=== PATIENT | female | born 1980 | race African-American/Black ===

== ENCOUNTER 2017-04-05 02:01 | Emergency (ER) | payer BC ==
[~2017-04-05] VITALS: Ht 170.2 cm; Wt 65.8 kg
[~2017-04-05 02:01] MED LIST: AZO95 MG; BACTRIM DS TAB1 EACH PO; BENTYL20 MG PO; CELEXA20 MG PO; CHLORDIAZEPOXID10 MG PO; CYCLOBENZAPRINE5 MG PO; FOLIC ACID1 MG PO; IBUPROFEN 600600 M1 PO; LEVOTHYROXIN0.025 MG PO; LO LOESTRIN FE1 EACH; LOESTRIN FE 1-1 EACH; MAG DELAY64 MG PO; MINASTRIN 24 F1 EACH PO; NEXIUM40 MG PO; NOHOMEMEDICATIONS; NORCO 5-325 TA1 EACH PO; OTHER PO; PERCOCET PO; POTASSIUM20 PO; SENNA8.6 MG PO; THIAMINE HCL25 GM PO; VITAMIN B-1100 M1 PO; VITAMIN B-1100 M2 PO; VITAMIN B-12500 MCG; ZYRTEC10 M5; ZYRTEC10 MG PO
[2017-04-05] MEDS ORDERED: PEPCID20 MG (02:16)
[2017-04-05 02:39] LABS: HEMATOCRIT 33.3 % (37.0-47.0); HEMOGLOBIN 10.8 gm/dL (12.0-15.0); MCHC 32.4 g/dL (28.0-37.0); MCV 77.1 fL (80.0-100.0); PLATELET COUNT 301 thou/uL (150-400); RBC 4.32 mil/uL (4.20-5.00)
[2017-04-05 02:40] LABS: MANUAL DIFF YES
[2017-04-05 02:48] LABS: CALCIUM 9.1 mg/dL (8.5-10.1); CREATININE 0.8 mg/dL (0.6-1.0); POTASSIUM 3.1 mmol/L (3.5-5.1)
[2017-04-05 02:54] LABS: ALBUMIN 3.4 g/dL (3.4-5.0); DIRECT BILIRUBIN 0.1 mg/dL (<0.1-0.3); TOTAL BILIRUBIN 0.4 mg/dL (<0.1-1.0); TOTAL PROTEIN 7.5 g/dL (6.4-8.2)
[2017-04-05 03:08] LABS: ABSOLUTE NEUTROPHILS 1.7 thou/uL (1.4-8.2); LARGE PLATELETS OCCASIONAL; TOTAL CELL COUNT 100
[2017-04-05] MEDS ORDERED: POTASSIUM20 PO (03:33)
[2017-04-05] MEDS ORDERED: SLOW-MAG64 M1 PO (03:33)
== END 2017-04-05 04:07 | disposition home or self-care (01) ==
LOC: ER 02:01
PROVIDERS: Emergency Medicine
DX: D72.819 Decreased white blood cell count, unspecified (principal); F10.220 Alcohol dependence with intoxication, uncomplicated; D64.9 Anemia, unspecified; E87.6 Hypokalemia; K85.90 Acute pancreatitis without necrosis or infection, unspecified; J45.909 Unspecified asthma, uncomplicated; E03.9 Hypothyroidism, unspecified; F32.9 Major depressive disorder, single episode, unspecified; F41.9 Anxiety disorder, unspecified; K21.9 Gastro-esophageal reflux disease without esophagitis; Z98.890 Other specified postprocedural states; Z88.1 Allergy status to other antibiotic agents; Z88.8 Allergy status to other drugs, medicaments and biological substances; Z87.891 Personal history of nicotine dependence

== ENCOUNTER 2017-07-27 23:18 | Emergency (ER) | payer BC ==
[~2017-07-27] VITALS: Ht 177.8 cm; Wt 63.5 kg
[~2017-07-27 23:18] MED LIST changes: +PEPCID20 MG; +SLOW-MAG64 M1 PO
[2017-07-27] MEDS ORDERED: VITAMIN B1 (23:30)
[2017-07-27] MEDS ORDERED: ZYRTEC10 M5 PO (23:39)
[2017-07-27] MEDS ORDERED: NAPROSYN500 MG PO (23:41)
[2017-07-27] MEDS ORDERED: NEURONTIN600 MG PO (23:48)
[2017-07-28] MEDS ORDERED: NAPROSYN500 MG PO (00:21)
== END 2017-07-28 00:34 | disposition home or self-care (01) ==
LOC: ER 23:18
DX: G56.03 Carpal tunnel syndrome, bilateral upper limbs (principal); G89.29 Other chronic pain; M25.552 Pain in left hip; M54.5 Low back pain; J45.909 Unspecified asthma, uncomplicated; E03.9 Hypothyroidism, unspecified; F32.9 Major depressive disorder, single episode, unspecified; F41.9 Anxiety disorder, unspecified; K21.9 Gastro-esophageal reflux disease without esophagitis; F10.99 Alcohol use, unspecified with unspecified alcohol-induced disorder; Z86.2 Personal history of diseases of the blood and blood-forming organs and certain disorders involving the immune mechanism; Z88.1 Allergy status to other antibiotic agents; Z87.891 Personal history of nicotine dependence

== ENCOUNTER 2017-08-27 02:54 | Inpatient (IN) | payer BC ==
[~2017-08-27] VITALS: Ht 177.8 cm; Wt 64.4 kg
--- NOTE | ~2017-08-27 | HC ---
[facility] [place] [address] CONSULTATION Name: KIEL SAAVEDRA Room #: 432-[facility] IN M.R.#: [id number] Admission: 08/27/17 Attend Phys: Salinas Camejo MD Discharge: Date of : 84 Report #: [id number] THIS REPORT FOR: //name// CC: Salinas Melton MD DATE OF SERVICE: 08/28/2017 ATTENDING PHYSICIAN: Salinas Camejo MD. REQUESTING PHYSICIAN: Dr. Ashford. REASON FOR CONSULTATION: Fever, leukopenia. HISTORY OF PRESENT ILLNESS: The patient is a 36-year-old -Citizen [place] woman, readmitted with abdominal pain and diagnosed to have alcohol induced pancreatitis. The patient is known to have used significant amounts of alcohol in the past. She has previous cholecystectomy for possible gallstone pancreatitis, but obviously she is having recurrent pancreatitis due to alcohol abuse. SOCIAL HISTORY: Single. Living with father and mother. Alcohol use heavily. DRUG ALLERGIES: AMOXICILLIN, PENICILLIN. MEDICATIONS: She is on magnesium and potassium supplementation per protocol, pantoprazole, oxycodone immediate release, morphine sulfate p.r.n., metronidazole 500 mg IV every 8 hours, ciprofloxacin 400 mg IV every 12 hours, p.r.n. zolpidem 5 mg at bedtime, polyethylene glycol 17 g daily, nitroglycerin SL p.r.n., lorazepam 1 mg q. 4h. p.r.n. IV, ondansetron 4 mg q. 4h. p.r.n. IV. She has received some famotidine for reflux esophagitis. REVIEW OF SYSTEMS: Abdominal pain. Diarrheal process that had been ongoing for a while, but has ceased since admission. Nausea and vomiting. Stomach becomes upset with solid meals. PHYSICAL EXAMINATION: GENERAL: This is a well-developed, not toxic looking -[place]izen [place] woman. VITAL SIGNS: Temperature of 100.5, pulse 82, respirations 18, BP 152/107, O2 saturation 100% on room air. HEENMT: Head normocephalic, atraumatic. Pupils reactive. Mouth: Good oral hygiene dentition. NECK: Supple. No thyromegaly or lymphadenopathy. BREASTS: Deferred. LYMPH NODE: Negative. [address] [address] CONSULTATION Name: KIEL SAAVEDRA Room #: [facility] IN [facility].#: [id number] Admission: 08/27/17 Attend Phys: Salinas Camejo MD Discharge: Date of : 84 Report #: [id number] LUNGS: Clear. HEART: S1, S2. No gallop or murmur. ABDOMEN: Epigastric tenderness. Surgical scar in the periumbilical area. No palpable masses or megaly. PELVIC AND RECTAL: Deferred. EXTREMITIES: No clubbing or cyanosis. NEUROLOGIC: Grossly within normal limits. LABORATORY DATA: Sodium 137, potassium 3.1, BUN 2, creatinine 0.8, lipase 3603. SGOT 175, alkaline phosphatase 189, albumin 3.1 g/dL. WBC 2100, hemoglobin 10.6 g/dL, platelets 156,000. White blood cell count differential revealed 67% neutrophils. Note is made that patient had been leukopenic since 02/2013. This possibly is related to a congenital type racially related leukopenic phenomenon. The test is negative. TSH mildly elevated at 7.6. Ferritin 650, folate 7.6 and B12 412. HIV antibodies pending. Urinalysis revealed trace proteinuria, otherwise negative. RADIOLOGY EVALUATION: A CT scan of abdomen and pelvis revealed absent gallbladder, inflammatory changes around the pancreas compatible with acute pancreatitis. Some pelvic fluid is present. Hemangiomas in the live are noticed. ASSESSMENT: 1. Acute alcoholic pancreatitis. 2. Fever, possibly secondary to above. 3. Electrolyte imbalance. 4. 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 5. Status post cholecystectomy. SUGGESTIONS: I agree with Dr. Ashford the patient needs HIV serology, though I believe her leukopenia may not be related to HIV infection. Continue coverage with Cipro and Flagyl. Decrease dose of Flagyl to 500 mg IV every 12 hours. Doubt very much we are dealing with C. difficile colitis. If clinically continues to looks this well, may discontinue antibiotics surely. Dr. Camejo and Dr. Ashford, thank you for requesting my suggestions in the care of your patient. <ELECTRONICALLY SIGNED> By: James aMhoney MD 08/29/17 0921 1336 0044 James Mahoney MD /nt
[~2017-08-27 02:54] MED LIST changes: +NAPROSYN500 MG PO; +NEURONTIN600 MG PO; +VITAMIN B1; +ZYRTEC10 M5 PO
[2017-08-27 03:02] VITALS: BP 171/117
[2017-08-27] MEDS ORDERED: METHYLPREDNISOLO4 MG PO (03:12)
[2017-08-27] MEDS ORDERED: INDOMETHACIN 5050 M1 (03:12)
[2017-08-27 03:57] LABS: URINE BILIRUBIN NEGATIVE (Negative); URINE BLOOD NEGATIVE (Negative); URINE COLOR YELLOW; URINE GLUCOSE-RANDOM* NEGATIVE (Negative); URINE KETONES NEGATIVE (Negative); URINE LEUKOCYTES-REFLEX NEGATIVE (Negative); URINE UROBILINOGEN 0.2 E.U./dl (0.2-1.0)
[2017-08-27 04:02] LABS: HEMATOCRIT 35.4 % (37.0-47.0); HEMOGLOBIN 11.1 gm/dL (12.0-15.0); MCHC 31.2 g/dL (28.0-37.0); MCV 83.1 fL (80.0-100.0); PLATELET COUNT 195 thou/uL (150-400); RBC 4.26 mil/uL (4.20-5.00); RDW 14.5 % (10.5-14.5); WBC 2.5 thou/uL (4.0-11.0)
[2017-08-27 04:03] LABS: MANUAL DIFF YES
[2017-08-27 04:07] LABS: CALCIUM 9.3 mg/dL (8.5-10.1); CREATININE 0.6 mg/dL (0.6-1.0); POTASSIUM 3.1 mmol/L (3.5-5.1)
[2017-08-27 04:13] LABS: ALBUMIN 3.5 g/dL (3.4-5.0)
[2017-08-27 04:27] LABS: SSA (PROTEIN CONFIRMATORY) TRACE (APPROX. 5) mg/dL (Negative); URINE PROTEIN (DIPSTICK) TRACE (Negative)
[2017-08-27 05:39] LABS: ABSOLUTE NEUTROPHILS 1.9 thou/uL (1.4-8.2); ANISOCYTOSIS SLIGHT; TOTAL CELL COUNT 100
[2017-08-27 15:29] VITALS: BP 156/109
[2017-08-27 19:13] LABS: % SATURATION 39 % (20-39); IRON 116 ug/dL (50-170); TIBC 301 ug/dL (250-450); UIBC 185 ug/dL
[2017-08-27 19:36] LABS: FOLIC ACID 7.6 ng/mL (8.6-58.9); TSH 7.64 uIU/mL (0.358-3.740)
[2017-08-27 20:00] VITALS: BP 162/103
[2017-08-28 01:01] VITALS: BP 161/112
[2017-08-28 05:45] VITALS: BP 152/107
[2017-08-28 06:25] LABS: HEMATOCRIT 34.6 % (37.0-47.0); HEMOGLOBIN 10.6 gm/dL (12.0-15.0); MCH 25.8 pg (26.0-34.0); MCHC 30.6 g/dL (28.0-37.0); MCV 84.4 fL (80.0-100.0); PLATELET COUNT 156 thou/uL (150-400); RDW 14.9 % (10.5-14.5); WBC 2.1 thou/uL (4.0-11.0)
[2017-08-28 06:30] LABS: MANUAL DIFF YES
[2017-08-28 06:44] LABS: ALBUMIN 3.1 g/dL (3.4-5.0); CALCIUM 7.8 mg/dL (8.5-10.1); CREATININE 0.8 mg/dL (0.6-1.0); POTASSIUM 3.1 mmol/L (3.5-5.1); TOTAL BILIRUBIN 1.4 mg/dL (<0.1-1.0); TOTAL PROTEIN 6.3 g/dL (6.4-8.2)
[2017-08-28 06:52] LABS: MAGNESIUM 0.9 mg/dL (1.8-2.4)
[2017-08-28 08:40] VITALS: BP 149/100
[2017-08-28 09:07] LABS: ABSOLUTE NEUTROPHILS 1.4 thou/uL (1.4-8.2); ATYPICAL LYMPHS 1 %; NUCLEATED RBCS 1 /100WBC; TOTAL CELL COUNT 100
[2017-08-28 09:09] LABS: ANISOCYTOSIS 2+; MACROCYTES 1+; MICROCYTES 1+
[2017-08-28 09:10] LABS: POLYCHROMASIA OCCASIONAL
[2017-08-28 17:12] LABS: HIV ANTIBODY Non Reactive (Non Reactive)
[2017-08-28 19:45] VITALS: BP 161/115
[2017-08-28 23:24] VITALS: BP 143/92
[2017-08-29 03:15] VITALS: BP 148/103
[2017-08-29 06:20] LABS: HEMATOCRIT 32.8 % (37.0-47.0); HEMOGLOBIN 10.3 gm/dL (12.0-15.0); MCH 26.3 pg (26.0-34.0); MCHC 31.3 g/dL (28.0-37.0); MCV 84.1 fL (80.0-100.0); PLATELET COUNT 137 thou/uL (150-400); RDW 15.5 % (10.5-14.5)
[2017-08-29 06:24] LABS: MANUAL DIFF YES
[2017-08-29 06:25] LABS: WBC 1.8 thou/uL (4.0-11.0)
[2017-08-29 06:39] LABS: ALBUMIN 2.8 g/dL (3.4-5.0); CALCIUM 8.3 mg/dL (8.5-10.1); CREATININE 0.7 mg/dL (0.6-1.0); MAGNESIUM 1.8 mg/dL (1.8-2.4); TOTAL BILIRUBIN 0.9 mg/dL (<0.1-1.0); TOTAL PROTEIN 5.9 g/dL (6.4-8.2)
[2017-08-29 08:14] VITALS: BP 141/100
[2017-08-29 08:45] LABS: ABSOLUTE NEUTROPHILS 1.1 thou/uL (1.4-8.2); PLATELET ESTIMATE NORMAL; TOTAL CELL COUNT 100
[2017-08-29 15:35] VITALS: BP 151/93
[2017-08-29 19:00] VITALS: BP 142/93
[2017-08-30 06:27] LABS: HEMATOCRIT 30.5 % (37.0-47.0); HEMOGLOBIN 9.5 gm/dL (12.0-15.0); MCH 26.3 pg (26.0-34.0); MCHC 31.3 g/dL (28.0-37.0); MCV 84.1 fL (80.0-100.0); PLATELET COUNT 147 thou/uL (150-400); RBC 3.62 mil/uL (4.20-5.00); RDW 15.3 % (10.5-14.5)
[2017-08-30 06:29] LABS: MANUAL DIFF YES
[2017-08-30 06:30] LABS: WBC 1.7 thou/uL (4.0-11.0)
[2017-08-30 08:03] VITALS: BP 139/92
[2017-08-30 08:19] LABS: CALCIUM 8.6 mg/dL (8.5-10.1); CREATININE 0.8 mg/dL (0.6-1.0); POTASSIUM 3.4 mmol/L (3.5-5.1)
[2017-08-30 09:40] LABS: TOTAL CELL COUNT 50
[2017-08-30 09:41] LABS: ANISOCYTOSIS 2+; MACROCYTES 1+; MICROCYTES 1+
[2017-08-30 09:49] LABS: LARGE PLATELETS OCCASIONAL
[2017-08-30 16:34] VITALS: BP 149/107
[2017-08-30 19:30] VITALS: BP 173/119
[2017-08-30 20:15] VITALS: BP 158/101
[2017-08-31 04:30] VITALS: BP 145/97
[2017-08-31 07:50] VITALS: BP 151/98
[2017-08-31 15:45] VITALS: BP 159/109
[2017-08-31 19:40] VITALS: BP 150/102
[2017-09-01 03:32] VITALS: BP 146/82
[2017-09-01 04:26] LABS: ABSOLUTE NEUTROPHILS 2.8 thou/uL (1.4-8.2); BASOPHILS 0.6 % (0.0-2.0); EOSINOPHILS 0.4 % (0.0-3.0); HEMATOCRIT 31.1 % (37.0-47.0); HEMOGLOBIN 9.9 gm/dL (12.0-15.0); LYMPHOCYTES 12.9 % (24.0-44.0); MCH 26.3 pg (26.0-34.0); MCHC 31.7 g/dL (28.0-37.0); MCV 82.9 fL (80.0-100.0); MONOCYTES 8.8 % (1.0-8.0); PLATELET COUNT 152 thou/uL (150-400); POLYS 77.3 % (36.0-66.0); RBC 3.75 mil/uL (4.20-5.00); RDW 14.9 % (10.5-14.5); WBC 3.6 thou/uL (4.0-11.0)
[2017-09-01 04:39] LABS: MANUAL DIFF NO
[2017-09-01] MEDS ORDERED: FLAGYL500 MG PO (08:51)
[2017-09-01] MEDS ORDERED: PROTONIX40 M1 PO (08:51)
[2017-09-01 09:27] VITALS: BP 144/105
[2017-09-01 12:52] VITALS: BP 144/105
== END 2017-09-01 15:19 | disposition home or self-care (01) | DRG 440 ==
LOC: ER 02:54 → 4E 06:05 → EROBS 06:05 → 4E 07:58
PROVIDERS: Emergency Medicine; Hospitalist; Internal Medicine Gastroenterology; Nurse Practitioner; Nurse Practitioner Acute Care
DX: K85.20 Alcohol induced acute pancreatitis without necrosis or infection (principal); E03.9 Hypothyroidism, unspecified; F32.9 Major depressive disorder, single episode, unspecified; J45.909 Unspecified asthma, uncomplicated; F41.9 Anxiety disorder, unspecified; D72.819 Decreased white blood cell count, unspecified; E87.6 Hypokalemia; K21.9 Gastro-esophageal reflux disease without esophagitis; E83.42 Hypomagnesemia; Z79.899 Other long term (current) drug therapy; Z87.891 Personal history of nicotine dependence; Z88.8 Allergy status to other drugs, medicaments and biological substances; Z88.1 Allergy status to other antibiotic agents; Z88.0 Allergy status to penicillin; Z90.49 Acquired absence of other specified parts of digestive tract
CPT/HCPCS: 10084

== ENCOUNTER 2018-09-25 19:05 | Emergency (ER) | payer OTHER ==
[~2018-09-25] VITALS: Ht 170.2 cm; Wt 61.7 kg
[~2018-09-25 19:05] MED LIST changes: +FLAGYL500 MG PO; +INDOMETHACIN 5050 M1; +METHYLPREDNISOLO4 MG PO; +PROTONIX40 M1 PO
[2018-09-25] MEDS ORDERED: TRAZODONE HCL50 MG PO (19:22)
[2018-09-25] MEDS ORDERED: NORCO 5-325 TA1 EACH PO (19:33)
[2018-09-25] MEDS ORDERED: BACTRIM DS TAB1 EACH PO (19:33)
[2018-09-25 19:41] VITALS: BP 163/103
== END 2018-09-25 19:42 | disposition home or self-care (01) ==
LOC: ER 19:05
DX: L02.215 Cutaneous abscess of perineum (principal); J45.909 Unspecified asthma, uncomplicated; E03.9 Hypothyroidism, unspecified; F32.9 Major depressive disorder, single episode, unspecified; F41.9 Anxiety disorder, unspecified; Z90.49 Acquired absence of other specified parts of digestive tract

== ENCOUNTER 2018-09-28 17:55 | Emergency (ER) | payer OTHER ==
[~2018-09-28] VITALS: Ht 170.2 cm; Wt 59.0 kg
[~2018-09-28 17:55] MED LIST changes: +TRAZODONE HCL50 MG PO
[2018-09-28 20:31] VITALS: BP 125/72
== END 2018-09-28 20:32 | disposition home or self-care (01) ==
LOC: ER 17:55
DX: L02.215 Cutaneous abscess of perineum (principal); J45.909 Unspecified asthma, uncomplicated; K21.9 Gastro-esophageal reflux disease without esophagitis; E03.9 Hypothyroidism, unspecified; Z90.49 Acquired absence of other specified parts of digestive tract

== ENCOUNTER 2019-02-22 17:11 | Emergency (ER) | payer OTHER ==
[~2019-02-22] VITALS: Ht 170.2 cm; Wt 61.7 kg
[2019-02-22] MEDS ORDERED: POTASSIUM20 PO (17:32)
[2019-02-22] MEDS ORDERED: INDAPAMIDE2.5 MG PO (17:34)
[2019-02-22] MEDS ORDERED: VENTOLIN HFA 1818 GM INH (17:35)
[2019-02-22] MEDS ORDERED: PHENERGAN 25 MG25 M1 PO (17:36)
[2019-02-22 17:59] LABS: HEMATOCRIT 34.7 % (37.0-47.0); HEMOGLOBIN 10.9 gm/dL (12.0-15.0); MCH 26.3 pg (26.0-34.0); MCHC 31.4 g/dL (28.0-37.0); MCV 83.8 fL (80.0-100.0); PLATELET COUNT 256 thou/uL (150-400); RBC 4.15 mil/uL (4.20-5.00); RDW 17.2 % (10.5-14.5); WBC 2.3 thou/uL (4.0-11.0)
[2019-02-22 18:07] LABS: CALCIUM 9.3 mg/dL (8.5-10.1); CREATININE 1.3 mg/dL (0.6-1.0)
[2019-02-22 18:10] LABS: POTASSIUM 2.5 mmol/L (3.5-5.1)
[2019-02-22 18:21] LABS: ABSOLUTE NEUTROPHILS 1.3 thou/uL (1.4-8.2); ANISOCYTOSIS 1+
[2019-02-22 21:12] LABS: CALCIUM 9.2 mg/dL (8.5-10.1); CREATININE 1.2 mg/dL (0.6-1.0)
[2019-02-22 21:13] LABS: POTASSIUM 3.9 mmol/L (3.5-5.1)
[2019-02-22 22:31] VITALS: BP 114/70
== END 2019-02-22 22:32 | disposition home or self-care (01) ==
LOC: ER 17:11
PROVIDERS: Physician Assistant
DX: E87.6 Hypokalemia (principal); R25.2 Cramp and spasm; F17.210 Nicotine dependence, cigarettes, uncomplicated; J45.909 Unspecified asthma, uncomplicated; E03.9 Hypothyroidism, unspecified; F32.9 Major depressive disorder, single episode, unspecified; F41.9 Anxiety disorder, unspecified; K21.9 Gastro-esophageal reflux disease without esophagitis; Z90.49 Acquired absence of other specified parts of digestive tract; Z90.89 Acquired absence of other organs; Z86.2 Personal history of diseases of the blood and blood-forming organs and certain disorders involving the immune mechanism; Z88.8 Allergy status to other drugs, medicaments and biological substances; Z88.1 Allergy status to other antibiotic agents

== ENCOUNTER 2019-03-09 09:46 | Emergency (ER) | payer OTHER ==
[~2019-03-09] VITALS: Ht 170.2 cm; Wt 61.2 kg
[~2019-03-09 09:46] MED LIST changes: +INDAPAMIDE2.5 MG PO; +PHENERGAN 25 MG25 M1 PO; +VENTOLIN HFA 1818 GM INH
[2019-03-09 10:38] LABS: URINE BILIRUBIN NEGATIVE (Negative); URINE BLOOD NEGATIVE (Negative); URINE CLARITY CLEAR; URINE COLOR YELLOW; URINE GLUCOSE-RANDOM* NEGATIVE (Negative); URINE KETONES NEGATIVE (Negative); URINE LEUKOCYTES-REFLEX NEGATIVE (Negative); URINE NITRITE-REFLEX NEGATIVE (Negative); URINE PROTEIN (DIPSTICK) 1+ (Negative); URINE SPECIFIC GRAVITY 1.015 (1.005-1.035)
[2019-03-09 10:50] LABS: BACTERIA-REFLEX 1-9 Few /HPF (None Seen); CASTS None Seen /LPF (None Seen); CRYSTALS None Seen /LPF (None Seen); MUCUS 0-3 Light strn/LPF (None Seen); SQUAMOUS 0-3 Few /LPF (0-3); URINE RBC 0-2 Rare /HPF (0-2); URINE WBC-REFLEX 0-5 Rare /HPF (0-5)
[2019-03-09 10:53] LABS: MCH 26.5 pg (26.0-34.0)
[2019-03-09 10:55] LABS: HEMATOCRIT 35.2 % (37.0-47.0); HEMOGLOBIN 11.3 gm/dL (12.0-15.0); MCHC 31.9 g/dL (28.0-37.0); MCV 83.1 fL (80.0-100.0); PLATELET COUNT 272 thou/uL (150-400); RBC 4.24 mil/uL (4.20-5.00); RDW 16.6 % (10.5-14.5)
[2019-03-09 10:58] LABS: WBC 1.7 thou/uL (4.0-11.0)
[2019-03-09 11:06] LABS: CALCIUM 8.8 mg/dL (8.5-10.1); POTASSIUM 3.2 mmol/L (3.5-5.1)
[2019-03-09 11:12] LABS: ALBUMIN 3.4 g/dL (3.4-5.0); TOTAL BILIRUBIN 0.8 mg/dL (<0.1-1.0); TOTAL PROTEIN 7.2 g/dL (6.4-8.2)
[2019-03-09 11:37] VITALS: BP 141/94
[2019-03-09] MEDS ORDERED: NAPROSYN500 MG PO (11:43)
[2019-03-09 12:01] LABS: ABSOLUTE NEUTROPHILS 0.9 thou/uL (1.4-8.2); PLATELET ESTIMATE NORMAL
--- NOTE | 2019-03-10 08:10 | EKG ---
[place] [address] [facility] [employer] [place] [address] ELECTROCARDIOGRAM REPORT Name: KIEL SAAVEDRA [id number] ������������������ Admission: 03/09/19 ������������������ Attend Phys: Discharge: 03/09/19 ������������������ Date of : 84 Report #: [id number] ����������������������������������������������������������������� [id number] THIS REPORT FOR: //name// [facility] ED Test Date: 2019-03-09 Test Time: 10:49:34 Pat Name: KIEL SAAVEDRA Department: Room: Gender: F Chocolate Dipper: VAIBHAV : 1980 Requested By: Chrissie Soler Order Number: [id number] MD: Ray Mahoney Measurements Intervals [place] Rate: 66 P: 34 MN: 148 QRS: 26 QRSD: 87 T: 29 QT: 418 QTc: 438 Interpretive Statements Sinus rhythm Consider left ventricular hypertrophy Compared to ECG 12/27/2015 21:04:10 No significant changes Electronically Signed On 03-10-2019 8:09:51 CDT by Ray Mahoney [email or web address] ��������������������������������������������� <ELECTRONICALLY SIGNED> ���������������������������������������� By: Ray Mahoney MD ��������������������������������������������� 03/10/19 0809 [id number] [id number] MD TL Barron
== END 2019-03-09 11:37 | disposition home or self-care (01) ==
LOC: ER 09:46
PROVIDERS: Physician Assistant
DX: E87.6 Hypokalemia (principal); M79.10 Myalgia, unspecified site; R00.2 Palpitations; J45.909 Unspecified asthma, uncomplicated; E03.9 Hypothyroidism, unspecified; F32.9 Major depressive disorder, single episode, unspecified; F41.9 Anxiety disorder, unspecified; K21.9 Gastro-esophageal reflux disease without esophagitis; Z90.49 Acquired absence of other specified parts of digestive tract; F17.210 Nicotine dependence, cigarettes, uncomplicated; Z88.1 Allergy status to other antibiotic agents

== ENCOUNTER 2019-03-09 14:40 | Emergency (ER) | payer OTHER ==
[~2019-03-09] VITALS: Ht 170.2 cm; Wt 61.2 kg
[2019-03-09 16:05] LABS: CALCIUM 8.3 mg/dL (8.5-10.1); CREATININE 0.8 mg/dL (0.6-1.0); POTASSIUM 3.6 mmol/L (3.5-5.1)
[2019-03-09 16:44] LABS: AMP/METHAMP Negative (Negative); BARBITURATES Negative (Negative); BENZODIAZEPINES Negative (Negative); COCAINE Negative (Negative); METHADONE Negative (Negative); OPIATES Negative (Negative); PCP Negative (Negative)
[2019-03-09 17:28] VITALS: BP 114/81
== END 2019-03-09 17:29 | disposition home or self-care (01) ==
LOC: ER 14:40
PROVIDERS: Physician Assistant
DX: F10.10 Alcohol abuse, uncomplicated (principal); F17.210 Nicotine dependence, cigarettes, uncomplicated; J45.909 Unspecified asthma, uncomplicated; E03.9 Hypothyroidism, unspecified; F32.9 Major depressive disorder, single episode, unspecified; F41.9 Anxiety disorder, unspecified; K21.9 Gastro-esophageal reflux disease without esophagitis; Z86.2 Personal history of diseases of the blood and blood-forming organs and certain disorders involving the immune mechanism; Z90.89 Acquired absence of other organs; Z88.8 Allergy status to other drugs, medicaments and biological substances; Z88.1 Allergy status to other antibiotic agents; Z90.49 Acquired absence of other specified parts of digestive tract; Y90.0 Blood alcohol level of less than 20 mg/100 ml

== ENCOUNTER 2019-08-08 15:36 | Inpatient (IN) | payer OTHER ==
[~2019-08-08] VITALS: Ht 152.4 cm; Wt 58.6 kg
[2019-08-08] VITALS (11 sets, daily range): BP systolic 88–151; BP diastolic 49–101
[2019-08-08 16:13] LABS: ABSOLUTE NEUTROPHILS 4.3 thou/uL (1.4-8.2); BASOPHILS 0.7 % (0.0-2.0); HEMATOCRIT 34.1 % (37.0-47.0); HEMOGLOBIN 10.5 gm/dL (12.0-15.0); LYMPHOCYTES 10.6 % (24.0-44.0); MCHC 30.9 g/dL (28.0-37.0); MCV 84.3 fL (80.0-100.0); MONOCYTES 5.6 % (1.0-8.0); PLATELET COUNT 215 thou/uL (150-400); POLYS 83.1 % (36.0-66.0); RBC 4.05 mil/uL (4.20-5.00); RDW 18.4 % (10.5-14.5); WBC 5.2 thou/uL (4.0-11.0)
[2019-08-08 16:36] LABS: ALBUMIN 3.3 g/dL (3.4-5.0); CALCIUM 8.2 mg/dL (8.5-10.1); CREATININE 1.1 mg/dL (0.6-1.0); TOTAL BILIRUBIN 0.6 mg/dL (<0.1-1.0); TOTAL PROTEIN 7.2 g/dL (6.4-8.2)
[2019-08-08 16:37] LABS: POTASSIUM 2.2 mmol/L (3.5-5.1)
[2019-08-08 16:47] LABS: MAGNESIUM 1.5 mg/dL (1.8-2.4); TROPONIN-I <0.06 ng/mL (<0.06)
[2019-08-08 16:50] LABS: ANISOCYTOSIS 1+
[2019-08-08 17:19] LABS: HCO3 22.5 mmol/L (22.0-26.0); PCO2 VENOUS 37.7 mmHg (41.0-51.0); PO2 VENOUS 29.2 mmHg (35.0-45.0)
[2019-08-08 18:05] LABS: URINE BILIRUBIN NEGATIVE (Negative); URINE BLOOD NEGATIVE (Negative); URINE CLARITY CLEAR; URINE COLOR YELLOW; URINE GLUCOSE-RANDOM* NEGATIVE (Negative); URINE KETONES 2+ (Negative); URINE LEUKOCYTES-REFLEX NEGATIVE (Negative); URINE NITRITE-REFLEX NEGATIVE (Negative); URINE PROTEIN (DIPSTICK) NEGATIVE (Negative); URINE SPECIFIC GRAVITY 1.025 (1.005-1.035); URINE UROBILINOGEN 0.2 E.U./dl (0.2-1.0)
--- NOTE | 2019-08-08 19:15 | NUR ---
[address] Y/[address] PT OF DR RIVAS ADMITTED TO ICU AWAKE AND ALERT ORIENTED X 4 NEURO INTACT. LUNGS CLEAR. AFEBRILE. TAKEN TO CAT SCAN FOR CT OF BRAIN. NEGATIVE FOR A BLEED. ON KCL AND MG REPLACEMENT ORDERED. WILL CONT TO MONITOR CLOSELY.
[2019-08-08 20:01] LABS: HEMATOCRIT 34.5 % (37.0-47.0); HEMOGLOBIN 10.8 gm/dL (12.0-15.0); MCH 26.2 pg (26.0-34.0); MCHC 31.3 g/dL (28.0-37.0); MCV 83.6 fL (80.0-100.0); PLATELET COUNT 201 thou/uL (150-400); RBC 4.12 mil/uL (4.20-5.00); RDW 18.2 % (10.5-14.5); WBC 3.3 thou/uL (4.0-11.0)
[2019-08-08 20:19] LABS: CALCIUM 8.7 mg/dL (8.5-10.1)
[2019-08-08 20:23] LABS: POTASSIUM 2.1 mmol/L (3.5-5.1)
[2019-08-08 20:55] LABS: ABSOLUTE NEUTROPHILS 2.4 thou/uL (1.4-8.2); ATYPICAL LYMPHS 1 %
[2019-08-08 20:57] LABS: ANISOCYTOSIS 2+; TEARDROPS FEW
[2019-08-08 21:48] LABS: AMP/METHAMP Negative (Negative); BARBITURATES Negative (Negative); BENZODIAZEPINES Negative (Negative); COCAINE Negative (Negative); METHADONE Negative (Negative); OPIATES Negative (Negative); PCP Negative (Negative)
[2019-08-08 23:01] LABS: FOLIC ACID > 100.0 ng/mL (8.6-58.9)
[2019-08-09] VITALS (19 sets, daily range): BP systolic 110–173; BP diastolic 76–117
[2019-08-09 04:45] LABS: HEMATOCRIT 28.7 % (37.0-47.0); MCH 26.1 pg (26.0-34.0); MCHC 31.2 g/dL (28.0-37.0); MCV 83.8 fL (80.0-100.0); RBC 3.43 mil/uL (4.20-5.00); RDW 18.3 % (10.5-14.5)
[2019-08-09 04:53] LABS: WBC 1.7 thou/uL (4.0-11.0)
[2019-08-09 05:04] LABS: MAGNESIUM 1.7 mg/dL (1.8-2.4)
[2019-08-09 05:05] LABS: POTASSIUM 3.2 mmol/L (3.5-5.1)
--- NOTE | 2019-08-09 06:00 | NUR ---
PT HAS BEEN UP TO TOILET TO VOID 20 X TONIGHT. 2500 CC UO THIS SHIFT. SLEPT at very SHORT INTERVALS. DENIES PAIN. SINUS RHYTHM. LUNGS CLEAR. ATIVAN X 3 PER ALCOHOL WITHDRAWL PROTOCAL. VERY UNSTEADY ON HER FEET WHEN GETTING UP. HIGH FALL RISK. CONCERNED ABOUT THE BOIL ON HER HEMMOROID ASSURED HER THE DOCTOR WOULD ADDRESS HER CONCERNS. S/C FOR MRI THIS am WIKLL CONT TO MONITOR.
--- NOTE | 2019-08-09 06:00 | NUR ---
CWAI OF 2 THIS HOUR SLIGHT TREMORS OF HANDS
--- NOTE | 2019-08-09 14:06 | NUR ---
CALL TED DANIEL AT [facility] TO ALERT PT'S PLAN IS OON WITH NO OON BENEFITS. WILL NEED TO DC OR TRANASFER TO IN [facility] (ALL [facility] AND [facility]). MET WITH PT AND HER MOTHER AND INFORMED OF ABOVE. PER DR. STEELE, PT NOT SAFE FOR DISCHARGE TODAY SO WILL NEED TO TRANSFER. PT'S CHOICE WOULD BE [facility] BUT UNDERSTANDS IF NO BED AT [facility] WILL NEED TO CONSIDER OTHER IN [facility] WITH BED AVAILABILITY. DR. CHRISTIAN CELL NUMBER AND REQUESTED CLINICAL PROVIDED TO [facility] TRANSFER [facility]. BUSINESS INTEGRATION MANAGER UPDATED. CHART COPY REQUESTED.
[2019-08-09] MEDS ORDERED: NORVASC10 MG PO (16:37)
--- NOTE | 2019-08-09 17:23 | NUR ---
UNEVENTFUL DAY, VITALS STABLE. PATIENT WILL BE TRANSFERRED TO [facility] DUE TO INSURANCE-OUT OF NETWORK.
--- NOTE | 2019-08-09 18:18 | NUR ---
CALL TO [facility] AND GAVE REPORT TO DENISHA RUDOLPH. EMS ALREADY NOTIFIED AND WILL CLERK ENTRY LEVEL PATIENT TO TRANSPORT TO [facility] 3.
--- NOTE | 2019-08-09 19:03 | NUR ---
PATIENT PICKED UP BY EMS AT 1840. BELONGINGS WITH MOTHER.
--- NOTE | 2019-08-10 08:31 | EKG ---
[address] [address] ELECTROCARDIOGRAM REPORT Name: KIEL SAAVEDRA Room #: 241-[facility] IN M.R.#: [id number] Admission: 08/08/19 Attend Phys: Gaston Rivers MD Discharge: 08/09/19 Date of : 84 Report #: [id number] THIS REPORT FOR: //name// [facility] ED Test Date: 2019-08-08 Test Time: 15:43:29 Pat Name: KIEL SAAVEDRA Department: Room: 241 Gender: F Organizational Effectiveness Consultant: CAROLYN : 1980 Requested By: Juventino Barrera Order Number: [id number] MD: Ray Mahoney Measurements Intervals [place] Rate: 78 P: 44 TN: 158 QRS: 12 QRSD: 89 T: -46 QT: 400 QTc: 456 Interpretive Statements Sinus rhythm Probable left atrial enlargement Borderline repolarization abnormality Compared to ECG 03/09/2019 10:49:34 No significant changes Electronically Signed On 08-10-2019 8:31:27 CDT by Ray Mahoney [email or web address] <ELECTRONICALLY SIGNED> By: Ray Mahoney MD 08/10/19 0831 1543 1543 Ray Mahoney MD /PETER
--- NOTE | 2019-08-13 14:17 | HC ---
[facility] [place] [address] CONSULTATION Name: KIEL SAAVEDRA Room #: [facility] IN .R.#: [id number] Admission: 08/08/19 Attend Phys: Gaston Rivers MD Discharge: 08/09/19 Date of : 84 Report #: [id number] THIS REPORT FOR: //name// CC: Gaston Melton DATE OF SERVICE: 08/09/2019 HISTORY OF PRESENT ILLNESS: This is a 38-year-old female patient who was seen by me for evaluation for left arm numbness and pain. She does not know when it started. She thinks she is better than she was when she came in. She complained of some pain when she moves her shoulder. She thinks she woke up with these symptoms yesterday, but she is not certain and at least some problem with the shoulder may be going on for longer than that. REVIEW OF SYSTEMS: Positive for multiple problems. The biggest problem appeared to be alcohol related. Her white count is only 1.7. Her liver function is abnormal. Her pain is much improved. She said she had some myalgia. She has some paresthesias in the arm including carpal tunnel syndrome even in the past. She also has pain in multiple other joints like back pain. She has no symptoms in her lower extremity. This was a relevant 14-point review of system. PAST MEDICAL HISTORY: Negative for this kind of symptoms. FAMILY HISTORY: Negative for any early age stroke. SOCIAL HISTORY: She drinks a lot of alcohol. PHYSICAL EXAMINATION: Limited because she is being transferred to another hospital for insurance reason. She is alert. She is responsive. She is oriented. She can follow simple commands. Cranial nerve examinations appear unremarkable. She does have a symmetrical strength and sensation and reflexes in both upper extremities. In the lower extremities, she has no symptoms. She appeared to be alert and responsive. Blood pressure is 157/109, pulse is 105. LABORATORY DATA: Indicate a white count of only 1.7. That has significantly decreased since 08/08/2019. Before I saw her, she had an MRI of the brain and C-spine and that was unremarkable. She also apparently had a CT scan of the head done on and that was also unremarkable. All these studies were already done before the consultation. IMPRESSION: The most likely etiology for the patient's symptom is musculoskeletal etiology. This is because she drinks heavy amount of alcohol and she is predisposed to compressive neuropathy or musculoskeletal problems including a joint problem. [facility] [address] [place] [address] CONSULTATION Name: KIEL SAAVEDRA Room #: 241-P [facility]#: [id number] Admission: 08/08/19 Attend Phys: Gaston Rivers MD Discharge: 08/09/19 Date of : 84 Report #: [id number] RECOMMENDATION: I was told that this patient is being transferred to another hospital because of insurance reason. She has numerous problems going on at the moment. Those need to be addressed and I do not think there is any acute stroke causing this problem. I talked that to the patient and also told her that I will defer further evaluation and management of neurological issue as well as other issues to the physicians of the hospital where she is going. She understood that. <ELECTRONICALLY SIGNED> By: Phillip Felix MD 08/13/19 1417 1728 0347 Phillip Felix MD /nt
== END 2019-08-09 18:40 | disposition short-term general hospital (02) | DRG 641 ==
LOC: ER 15:36 → EROBS 17:46 → ICU 17:46
PROVIDERS: Emergency Medicine; Nurse Practitioner Acute Care; Physician Assistant; ADMIT Internal Medicine
DX: E87.2 Acidosis (principal); N17.9 Acute kidney failure, unspecified; J45.909 Unspecified asthma, uncomplicated; E03.9 Hypothyroidism, unspecified; F32.9 Major depressive disorder, single episode, unspecified; F41.9 Anxiety disorder, unspecified; K21.9 Gastro-esophageal reflux disease without esophagitis; F10.20 Alcohol dependence, uncomplicated; D64.9 Anemia, unspecified; K64.4 Residual hemorrhoidal skin tags; E87.6 Hypokalemia; E83.42 Hypomagnesemia; F17.210 Nicotine dependence, cigarettes, uncomplicated; Z90.49 Acquired absence of other specified parts of digestive tract; Z88.1 Allergy status to other antibiotic agents; Z88.8 Allergy status to other drugs, medicaments and biological substances; Z79.899 Other long term (current) drug therapy
CPT/HCPCS: 10078; 10203